=== PATIENT | male | born 1965 | race Caucasian/White ===

== ENCOUNTER → 2021-12-20 11:44 | Outpatient (CLI) | payer OTHER, SELFPAY ==
--- NOTE | ~2021-12-20 | XR_ITS ---
XR shoulder RT min 2V 12/20/2021 12:14 Indication: Right shoulder pain. Bicipital tendinitis. Procedure: 4 views right shoulder Comparison: No prior studies for comparison. Findings: Mild osteoarthritis of the acromioclavicular joint. No fracture, subluxation or dislocation . No significant soft tissue abnormality. No foreign bodies. Impression: 1: Mild osteoarthritis of the acromioclavicular joint. Reviewed, dictated and finalized at location B. Impression: 1: Mild osteoarthritis of the acromioclavicular joint.
== END ==
PROVIDERS: PCP Family Medicine; Visit Provider Family Medicine
DX: M75.21 Bicipital tendinitis, right shoulder (principal); S46.011A Strain of muscle(s) and tendon(s) of the rotator cuff of right shoulder, initial encounter; X58.XXXA Exposure to other specified factors, initial encounter; M19.011 Primary osteoarthritis, right shoulder
CPT/HCPCS: 73030